=== PATIENT | male | born 1955 | race Caucasian/White ===

== ENCOUNTER 2018-05-04 08:39 | Outpatient (CLI) | payer OTHER | END 2018-05-04 08:40 | disposition home or self-care (01) | LOC: DTY/OP 08:39 | PROVIDERS: ATTEND Surgery | DX: E66.01 Morbid (severe) obesity due to excess calories (principal) | CPT/HCPCS: 97802 ==

== ENCOUNTER 2018-06-01 09:00 | Outpatient (CLI) | payer OTHER | END 2018-06-01 09:01 | disposition home or self-care (01) | LOC: DTY/OP 09:00 | PROVIDERS: ATTEND Surgery | DX: E66.01 Morbid (severe) obesity due to excess calories (principal) | CPT/HCPCS: 97802 ==

== ENCOUNTER 2018-07-01 08:41 | Outpatient (CLI) | payer OTHER | END 2018-07-01 08:42 | disposition home or self-care (01) | LOC: DTY/OP 08:41 | PROVIDERS: ATTEND Surgery | DX: E66.01 Morbid (severe) obesity due to excess calories (principal) | CPT/HCPCS: 97802 ==

== ENCOUNTER 2018-08-02 08:48 | Outpatient (CLI) | payer OTHER | END 2018-08-02 08:49 | disposition home or self-care (01) | LOC: DTY/OP 08:48 | PROVIDERS: ATTEND Surgery | DX: E66.01 Morbid (severe) obesity due to excess calories (principal) | CPT/HCPCS: 97802 ==

== ENCOUNTER 2018-08-10 06:24 | Outpatient (CLI) | payer OTHER ==
[2018-08-10 12:26] LABS: Mean Corpuscular HGB CONC 34.6 g/dL (32.0-36.0); Mean Corpuscular Hemoglobin 32.2 pg (27.0-31.0); Mean Corpuscular Volume 93.2 fL (78.0-98.0); Mean Platelet Volume 9.7 fL (7.4-10.4); Platelet Count 276 thou/uL (130-400); RBC Distribution Width 12.2 % (11.5-14.5); Red Blood Cell (RBC) Count 4.67 mill/uL (4.70-6.10); White Blood Cell (WBC) Count 6.7 thou/uL (4.8-10.8)
[2018-08-10 12:31] LABS: Bacteria/HPF None Seen HPF (None Seen); Hyaline Casts/LPF NONE SEEN LPF (0-3 Hyaline); RBC/HPF None Seen HPF (0-3); Squamous Epithelial 0-3 HPF (0-3); WBC/HPF None Seen HPF (0-3)
[2018-08-10 12:35] LABS: PTT 31.8 SEC (22.9-36.1); Prothrombin Time 13.7 SEC (12.0-14.7)
[2018-08-10 12:49] LABS: Anion Gap 12 mmol/L (10-20); BUN (Urea Nitrogen) 17 mg/dL (8.4-25.7); Calc. Creatinine Clearance 0 mL/min (70-130); Carbon Dioxide 26 mmol/L (23-31); Chloride 107 mmol/L (98-107); Estimated GFR-MDRD 88; Glucose 85 mg/dL (80-115); Potassium 3.5 mmol/L (3.5-5.1); Sodium 141 mmol/L (136-145)
== END 2018-08-10 06:25 | disposition home or self-care (01) ==
LOC: LABBT 06:24
PROVIDERS: ATTEND Urology
DX: Z01.812 Encounter for preprocedural laboratory examination (principal); N40.1 Benign prostatic hyperplasia with lower urinary tract symptoms; B37.42 Candidal balanitis
CPT/HCPCS: 80048; 81015; 85027; 85610; 85730; 87086; 93005; 93010

== ENCOUNTER 2018-08-19 07:06 | Observation (INO) | payer OTHER ==
[2018-08-10 11:50] VITALS: BMI 36.9
[2018-08-19] MEDS ORDERED: Levofloxacin 500 mg/D5W 100 ml Premix Bag ONE (08:15)
[2018-08-19] MEDS ORDERED: Fentanyl 100 MCG/2 ML VIAL ONE ×2 (09:31→12:38)
[2018-08-19] MEDS ORDERED: Bupivacaine 0.25% HCL 30 ML VIAL ONE (09:38)
[2018-08-19] MEDS ORDERED: Bacitracin Zinc Ointment 30 gm TUBE ONE (09:38)
[2018-08-19] MEDS ORDERED: Bupivacaine/Epinephrine 0.25% 30 ML VIAL ONE (09:38)
[2018-08-19] MEDS ORDERED: Lidocaine 1% PF 5 ML VIAL ONE (10:54)
[2018-08-19] MEDS ORDERED: Ondansetron PF 4 MG/2 ML Vial ONE (10:54)
[2018-08-19] MEDS ORDERED: PROPOFOL 200 MG/20 ML VIAL ONE (10:54)
[2018-08-19] MEDS ORDERED: B & O ONE (13:33)
[2018-08-19] MEDS ORDERED: Meperidine HCl/PF 25 MG/ML VIAL ONE (13:58)
[2018-08-19] MEDS ORDERED: Morphine 2 MG/ML SYRINGE SLOW IVP PRN (14:04)
[2018-08-19] MEDS ORDERED: Ondansetron PF 4 MG/2 ML Vial IVP PRN (14:04)
[2018-08-19] MEDS ORDERED: Hyoscyamine Sulfate SL 0.125 mg Tablet SL PRN (14:04)
[2018-08-19] MEDS ORDERED: Bisacodyl 10 MG SUPP PR PRN (14:04)
[2018-08-19] MEDS ORDERED: Mag-Al 1200 mg/1200 mg/30 ML UDCUP PO PRN (14:04)
[2018-08-19] MEDS ORDERED: HYDROcodone/Acetaminophen 5/325 mg Tablet PO PRN ×2 (14:04)
[2018-08-19] MEDS ORDERED: Oxybutynin 5 MG TAB PO PRN (14:04)
[2018-08-19] MEDS ORDERED: diphenhydrAMINE 25 MG CAP PO PRN (14:04)
[2018-08-19] MEDS ORDERED: hydrALAZINE 20 MG/ML VIAL SLOW IVP PRN (14:04)
[2018-08-19] MEDS: Acetaminophen 500 MG TAB PO PRN (19:12)
[2018-08-19] MEDS: Docusate 100 MG CAP PO SCH (20:21)
[2018-08-19] MEDS ORDERED: Pravastatin Sodium 20 MG TAB PO SCH (21:00)
[2018-08-19] MEDS ORDERED: Hydrochlorothiazide 25 MG TAB PO SCH (21:00)
[2018-08-19] MEDS ORDERED: Amlodipine 10 MG TAB PO SCH (21:00)
[2018-08-19] MEDS ORDERED: valACYclovir 500 MG TAB PO SCH (21:00)
--- NOTE | 2018-08-19 23:33 | OP ---
DATE OF PROCEDURE: 08/19/2018 SERVICE: Urology. PREOPERATIVE DIAGNOSES: Posthitis and benign prostatic hypertrophy with urinary obstruction. POSTOPERATIVE DIAGNOSES: Posthitis and benign prostatic hypertrophy with urinary obstruction. PROCEDURES PERFORMED: circumcision with transurethral vaporization of prostate. INDICATIONS FOR PROCEDURE: Mr. Mas is a 63-year-old white male, who presented to me with significant urinary complaints along with foreskin, which was chronically irritated and bothersome. We discussed options for treatments including circumcision, which he would like to proceed with. Additionally, we discussed UroLift versus prostate vaporization with risks and benefits and he elected to go with prostate vaporization. DESCRIPTION OF PROCEDURE: After identification of armband and verification of consent, the patient was brought back to the operating room, where he underwent general anesthesia with an LMA. He was left in the supine position and prepped and draped in usual sterile fashion. After appropriate time-out, a dorsal penile nerve block was performed with 0.25% Marcaine plain. An incision was made beyond the coronal sulcus of the glans down to Lyman's fascia. The foreskin was then reduced and a counter incision made overlying the first incision with a 15 blade. The intervening skin was then removed with a combination of Bovie electric R cautery and sharp dissection. Meticulous hemostasis was performed of the underside of intervening tissue and then the skin was reapproximated using a 4-0 chromic in an interrupted fashion. Some redundant skin on the ventral aspect of the penis was incised off and then the defect closed with a running 4-0 chromic. Dermabond was applied and once dry, a Telfa compression dressing applied. The patient was then transferred to the cystoscopy suite while still asleep and re-prepped and draped in the usual sterile fashion. A 26-Sinhala resectoscope sheath was then placed into the urethra with visual obturator into the bladder. The visual obturator was switched out for the bipolar button plasma vaporization electrode. Vaporization was started at the lateral lobes of the prostate and carried out toward the proximal aspect. Relaxing incisions were made at 5 and 7 o'clock, taking care to avoid the ureteral orifices, which were very close proximity to the bladder neck. All intervening tissue was vaporized until we were close to but not through the capsule. Upon completion, the prostate was wide open. Meticulous hemostasis was performed. The ureters were inspected at the end of the case and found to be in orthotopic location unharmed. The bladder was left partially filled and the resectoscope removed. A 24-Sinhala three- way Bonilla catheter was placed with ease into the bladder and CBI initiated. A new dressing was placed on the penis and the old one removed as it had become significantly wet during the procedure. A 16- A B and O suppository was placed in the patient's rectum and a StatLock affixed to secure the catheter. The patient was then taken out of lithotomy, awakened, taken to PACU for recovery in stable condition. COMPLICATIONS: None. ESTIMATED BLOOD LOSS: Minimal. RETAINED TUBES AND DRAINS: 22-Sinhala three-way Bonilla catheter on CBI. SPECIMENS: Foreskin. DISPOSITION: The patient will be kept in the hospital overnight for CBI. We will plan a voiding trial in the morning and discharge home. Job ID: [id number] MTDD
[2018-08-20 05:54] LABS: #Eosinphils 0.1 thou/uL (0.0-0.7); #Lymphocytes 2.2 thou/uL (1.20-3.40); #Monocytes 1.2 thou/uL (0.11-0.59); #Neutrophils 8.8 thou/uL (1.40-6.50); %Basophils 0.3 % (0.0-1.0); %Eosinophils 0.7 % (0.0-10.0); %Lymphocytes 17.7 % (21.0-51.0); %Monocytes 9.7 % (0.0-10.0); %Neutrophils 71.6 % (42.0-75.0); Hemoglobin 15.5 g/dL (14.0-18.0); Mean Corpuscular HGB CONC 35.6 g/dL (32.0-36.0); Mean Corpuscular Hemoglobin 33.1 pg (27.0-31.0); Mean Platelet Volume 8.8 fL (7.4-10.4); Platelet Count 242 thou/uL (130-400); RBC Distribution Width 12.2 % (11.5-14.5); Red Blood Cell (RBC) Count 4.68 mill/uL (4.70-6.10); White Blood Cell (WBC) Count 12.3 thou/uL (4.8-10.8)
[2018-08-20 06:22] LABS: Anion Gap 10 mmol/L (10-20); BUN (Urea Nitrogen) 12 mg/dL (8.4-25.7); Calc. Creatinine Clearance 138 mL/min (70-130); Calcium 9.4 mg/dL (7.8-10.44); Carbon Dioxide 28 mmol/L (23-31); Chloride 103 mmol/L (98-107); Estimated GFR-MDRD 83; Glucose 96 mg/dL (80-115); Sodium 138 mmol/L (136-145)
[2018-08-20] MEDS: Acetaminophen 500 MG TAB PO PRN ×2 (06:44→11:49)
[2018-08-20] MEDS: Docusate 100 MG CAP PO SCH (08:21)
[2018-08-20 15:43] VITALS: BP 142/67; TEMP 97.9
--- NOTE | 2018-08-21 10:37 | DIS ---
DATE OF ADMISSION: 08/19/2018 DATE OF DISCHARGE: 08/20/2018 (observation only). HISTORY: Mr. Mas is a 63-year-old gentleman who was admitted to the hospital on 08/19/2018 for surgical therapy for BPH and redundant foreskin. HOSPITAL COURSE: The patient underwent circumcision and button vaporization of the prostate on 08/19/[address] Patel. His postoperative course was uneventful. He was maintained on continuous bladder irrigation overnight, and it was discontinued on the morning of 08/20/2018. The urine remained clear off irrigation. The catheter was removed. The patient demonstrated the ability to void. He was discharged home. Discharge medications as per Dr. Patel. FOLLOWUP: The patient has followup appointment with Dr. Patel next week. Job ID: [id number]
== END 2018-08-20 15:20 | disposition home or self-care (01) ==
LOC: SDC 07:06 → SURG A 14:50
PROVIDERS: ADMIT Urology; ATTEND Urology
PROC: 0V508ZZ Destruction of Prostate, Via Natural or Artificial Opening Endoscopic (ICD-10-PCS; principal; 2018-08-20)
PROC: 0VTTXZZ Resection of Prepuce, External Approach (ICD-10-PCS; 2018-08-20)
DX: N40.1 Benign prostatic hyperplasia with lower urinary tract symptoms (principal); N13.8 Other obstructive and reflux uropathy; N47.1 Phimosis; B37.42 Candidal balanitis; I10 Essential (primary) hypertension; M19.90 Unspecified osteoarthritis, unspecified site; E78.5 Hyperlipidemia, unspecified; Z88.5 Allergy status to narcotic agent; Z79.899 Other long term (current) drug therapy
CPT/HCPCS: 36415; 80048; 85025; 88304; G0378; J1956; J2001; J2175; J2405; J2704; J3010; S0020

== ENCOUNTER 2018-09-26 08:13 | Outpatient (CLI) | payer OTHER ==
[2018-09-26 09:35] LABS: #Eosinphils 0.2 thou/uL (0.0-0.7); #Lymphocytes 1.9 thou/uL (1.20-3.40); #Monocytes 0.5 thou/uL (0.11-0.59); #Neutrophils 3.5 thou/uL (1.40-6.50); %Basophils 0.6 % (0.0-1.0); %Eosinophils 2.5 % (0.0-10.0); %Lymphocytes 30.8 % (21.0-51.0); %Monocytes 8.7 % (0.0-10.0); %Neutrophils 57.4 % (42.0-75.0); Hemoglobin 16.1 g/dL (14.0-18.0); Mean Corpuscular Hemoglobin 31.2 pg (27.0-31.0); Mean Corpuscular Volume 91.9 fL (78.0-98.0); Mean Platelet Volume 8.5 fL (7.4-10.4); Platelet Count 244 thou/uL (130-400); RBC Distribution Width 12.2 % (11.5-14.5); Red Blood Cell (RBC) Count 5.14 mill/uL (4.70-6.10); White Blood Cell (WBC) Count 6.2 thou/uL (4.8-10.8)
[2018-09-26 09:43] LABS: Hemoglobin A1c 5.4 % (4.0-6.0)
[2018-09-26 10:03] LABS: ALT (SGPT) 19 U/L (8-55); AST (SGOT) 14 U/L (5-34); Albumin 4.5 g/dL (3.4-4.8); Alkaline Phosphatase 69 U/L (40-150); Anion Gap 14 mmol/L (10-20); BUN (Urea Nitrogen) 16 mg/dL (8.4-25.7); Bilirubin, Direct 0.2 mg/dL (0.1-0.3); Bilirubin, Total 0.4 mg/dL (0.2-1.2); Calc. Creatinine Clearance 0 mL/min (70-130); Calcium 9.5 mg/dL (7.8-10.44); Carbon Dioxide 25 mmol/L (23-31); Chloride 104 mmol/L (98-107); Estimated GFR-MDRD 85; Globulin 2.8 g/dL (2.4-3.5); Glucose 94 mg/dL (80-115); Potassium 3.9 mmol/L (3.5-5.1); Protein, Total 7.3 g/dL (5.8-8.1); Sodium 139 mmol/L (136-145)
--- NOTE | 2018-09-26 10:42 | RAD ---
PA AND LATERAL CHEST: Date: 09/26/18 HISTORY: Preop. FINDINGS: Heart size and mediastinum within normal limits. Lungs are clear of infiltrates. No significant bony findings. IMPRESSION: No active intrathoracic disease. POS: TPC
== END 2018-09-26 08:14 | disposition home or self-care (01) ==
LOC: LABBT 08:13
PROVIDERS: ATTEND Surgery
DX: Z01.818 Encounter for other preprocedural examination (principal); E66.01 Morbid (severe) obesity due to excess calories
CPT/HCPCS: 71046; 80053; 80076; 83036; 85025

== ENCOUNTER 2018-09-26 08:30 | Inpatient (IN) | payer OTHER ==
[2018-10-04] MEDS ORDERED: Heparin 5,000 UNITS/ML VIAL ONE (08:26)
[2018-10-04] MEDS ORDERED: Scopolamine 1.5 mg/72 hour Patch ONE (09:37)
[2018-10-04] MEDS ORDERED: Bupivacaine/Epinephrine 0.25% 30 ML VIAL ONE (11:19)
[2018-10-04] MEDS ORDERED: Fentanyl 250 MCG/5 ML VIAL ONE (11:21)
[2018-10-04] MEDS ORDERED: Ondansetron HCl/PF 4 MG/2 ML Vial IVP PRN (13:00)
[2018-10-04] MEDS ORDERED: Promethazine HCl 25 MG/ML VIAL ONE (13:00)
[2018-10-04] MEDS ORDERED: Fentanyl 100 MCG/2 ML VIAL ONE ×3 (13:00→13:36)
[2018-10-04] MEDS ORDERED: Promethazine HCl 25 MG/ML VIAL SLOW IVP PRN (13:00)
[2018-10-04] MEDS ORDERED: Promethazine HCl 25 MG/ML VIAL IM PRN ×3 (13:00→13:14)
[2018-10-04] MEDS ORDERED: diphenhydrAMINE 50 MG/ML VIAL IVP PRN ×2 (13:12→13:14)
[2018-10-04] MEDS ORDERED: hydrALAZINE 20 MG/ML VIAL SLOW IVP PRN (13:12)
[2018-10-04] MEDS ORDERED: Dextrose 50% Abboject 50 ML SYRINGE SLOW IVP PRN (13:12)
[2018-10-04] MEDS ORDERED: Hydrocodone-Acetamin 15 ML UDCUP PO PRN (13:12)
[2018-10-04] MEDS ORDERED: Ondansetron PF 4 MG/2 ML Vial IVP PRN ×2 (13:12→13:14)
[2018-10-04] MEDS ORDERED: Dextrose 5% in Water 1,000 ML IV PRN (13:12)
[2018-10-04] MEDS ORDERED: Zolpidem Tartrate 5 MG TAB PO PRN (13:14)
[2018-10-04] MEDS ORDERED: fentaNYL Citrate/PF 2,000 MCG in Sodium Chloride 0.9% 60 ML IV PRN (13:14)
[2018-10-04] MEDS ORDERED: diphenhydrAMINE 25 MG CAP PO PRN (13:14)
[2018-10-04] MEDS ORDERED: diphenhydrAMINE 50 MG/ML VIAL IM PRN (13:14)
[2018-10-04] MEDS ORDERED: Naloxone HCl 0.4 mg/ml Vial IV PRN (13:14)
[2018-10-04] MEDS ORDERED: Communication Order-Pharmacy FS SCH (13:15)
[2018-10-04] MEDS ORDERED: Ondansetron PF 4 MG/2 ML Vial ONE (15:10)
[2018-10-04] MEDS ORDERED: Rocuronium Bromide 10 MG/ML (10ML VIAL) ONE (15:10)
[2018-10-04] MEDS ORDERED: PROPOFOL 200 MG/20 ML VIAL ONE (15:10)
[2018-10-04] MEDS ORDERED: Dexamethasone 20 MG/5 ML VIAL ONE (15:10)
[2018-10-04] MEDS ORDERED: Glycopyrrolate 0.2 MG/ML 5 ML SYRINGE ONE (15:10)
[2018-10-04] MEDS ORDERED: Lidocaine 1% PF 5 ML VIAL ONE (15:10)
[2018-10-04 16:03] VITALS: BMI 36.5
[2018-10-04] MEDS: Acetaminophen 1,000 MG in Premix Bag 1 BAG IVPB SCH ×2 (16:08→20:28)
[2018-10-04] MEDS: D5 1/2 NS w/20 mEq KCL 1,000 ML IV SCH ×2 (16:09→20:34)
--- NOTE | 2018-10-04 19:14 | OP ---
DATE OF PROCEDURE: 10/04/2018 PREOPERATIVE DIAGNOSES: 1. Morbid obesity with a body mass index of 35. 2. Hypertension. 3. Hyperlipidemia. POSTOPERATIVE DIAGNOSES: 1. Morbid obesity with a body mass index of 35. 2. Hypertension. 3. Hyperlipidemia. PROCEDURE PERFORMED: Laparoscopic sleeve gastrectomy with [place] staple line reinforcements and 38-Amharic bougie. ANESTHESIA: General. ESTIMATED BLOOD LOSS: 50 mL. COMPLICATIONS: None. SPECIMEN: Stomach. FINDINGS: Normal postoperative EGD. DESCRIPTION OF PROCEDURE: The patient was taken to the operating room and laid supine on the operating room table. After general anesthetic was obtained, the arms and legs were double strapped to bariatric table. The OG tube was used to decompress the stomach. The abdomen was prepped and draped in a sterile fashion. Left subcostal 5 mm Optiview trocar was placed in usual fashion and high-flow pneumoperitoneum was obtained. Left and right abdominal 12 mm ports as well as right subcostal 5 mm port were placed under direct visualization. The patient was placed in reverse Trendelenburg position. A 5 mm incision was made at the xiphoid and Juan Antonio was used to raise the liver off the GE junction. Short gastrics were taken down from mid body of stomach to left tony of diaphragm. The angle of His, fundus of the stomach, and posterior fundus were all completely dissected and freed of its attachments. Short gastrics were taken down to a distance of 6 cm proximal to the pylorus. OG tube was removed and then 38 bougie was brought in and its tip left in the antrum of the stomach. Multiple loads of the [place] stapling device with [place] staple line reinforcements used to perform the sleeve. The first was fired up at a distance of 6 cm proximal to the pylorus, angled up towards the incisura. Care was taken to avoid being too close to incisura. Multiple loads then fired up along the bougie. Stomach was completely transected at the angle of His. The stomach was removed from the left abdominal incision. This fascial defect was closed using GraNee needle and 0 Vicryl tie. The bougie was removed and the EGD scope was passed into esophagus, stomach to the level of duodenum. There was no obstruction. There was no stricture at the incisura. The stomach was decompressed and the EGD scope was removed. Juan Antonio retractors were removed under direct visualization without bleeding. All ports were removed under camera visualization. Pneumoperitoneum was let down. Vicryl was used to close the fascial defect from the left abdominal incisions. All incisions were irrigated and closed using 4-0 Monocryl and Dermabond. The patient was sent to Recovery in stable condition. All instrument counts, needle counts, and lap counts were correct. Job ID: [id number]
[2018-10-04] MEDS ORDERED: Enoxaparin Sodium 40 MG/0.4 ML SYRINGE SC SCH (21:00)
[2018-10-04] MEDS ORDERED: Amlodipine 10 MG TAB PO SCH (21:00)
[2018-10-05] MEDS: Acetaminophen 1,000 MG in Premix Bag 1 BAG IVPB SCH (01:32)
[2018-10-05] MEDS: D5 1/2 NS w/20 mEq KCL 1,000 ML IV SCH (04:31)
[2018-10-05 05:58] LABS: #Lymphocytes 1.1 thou/uL (1.20-3.40); #Monocytes 0.9 thou/uL (0.11-0.59); #Neutrophils 11.2 thou/uL (1.40-6.50); %Eosinophils 0.1 % (0.0-10.0); %Lymphocytes 8.6 % (21.0-51.0); %Monocytes 6.6 % (0.0-10.0); %Neutrophils 84.7 % (42.0-75.0); Hemoglobin 15.9 g/dL (14.0-18.0); Mean Corpuscular HGB CONC 33.2 g/dL (32.0-36.0); Mean Corpuscular Hemoglobin 30.7 pg (27.0-31.0); Mean Corpuscular Volume 92.6 fL (78.0-98.0); Platelet Count 306 thou/uL (130-400); RBC Distribution Width 12.3 % (11.5-14.5); Red Blood Cell (RBC) Count 5.18 mill/uL (4.70-6.10); White Blood Cell (WBC) Count 13.3 thou/uL (4.8-10.8)
[2018-10-05 06:19] LABS: Anion Gap 11 mmol/L (10-20); BUN (Urea Nitrogen) 14 mg/dL (8.4-25.7); Calc. Creatinine Clearance 135 mL/min (70-130); Calcium 9.8 mg/dL (7.8-10.44); Carbon Dioxide 26 mmol/L (23-31); Chloride 104 mmol/L (98-107); Estimated GFR-MDRD 82; Glucose 138 mg/dL (80-115); Potassium 4.4 mmol/L (3.5-5.1); Sodium 137 mmol/L (136-145)
--- NOTE | 2018-10-05 07:51 | PDOC.GSPN ---
Surgery Progress Note: Subj - Subjective Narrative: Reports mild but appropriate abdominal pain. He is able to tolerate liquids with mild nausea that has been well controlled with the scopolamine patch. Surgery Progress Note: Obj - Vital signs Vital signs: Vital Signs - Most Recent Temp Pulse Resp BP Pulse Ox 97.7 F 76 16 159/85 H 100 10/05/18 04:00 10/05/18 04:00 10/05/18 04:00 10/05/18 04:00 10/05/18 04:00 - Physical Exam General: other (Mild distress) Cardiovascular: regular rate and rhythm, no murmur Respiratory: clear to auscultation, normal expansion, normal respiratory effort Abdomen: soft, positive bowel sounds, appropriately tender Psychiatric: memory intact, oriented to time, oriented to person, oriented to place, speech is normal Wound: healing well Surgery Progress Note: Results - Labs Result Diagrams: 10/05/18 05:33 10/05/18 05:33 Lab results: Laboratory Results - last 24 hr 10/05/18 10/05/18 05:33 05:33 WBC 13.3 H RBC 5.18 Hgb 15.9 Hct 47.9 MCV 92.6 MCH 30.7 MCHC 33.2 RDW 12.3 Plt Count 306 MPV 8.0 Neutrophils % 84.7 H Lymphocytes % 8.6 L Monocytes % 6.6 Eosinophils % 0.1 Basophils % 0.0 Neutrophils # 11.2 H Lymphocytes # 1.1 L Monocytes # 0.9 H Eosinophils # 0.0 Basophils # 0.0 Sodium 137 Potassium 4.4 Chloride 104 Carbon Dioxide 26 Anion Gap 11 BUN 14 Creatinine 0.93 Estimated GFR (MDRD) 82 Glucose 138 H Calcium 9.8 Surgery Progress Note: A/P - Plan Plan: Pt. is post gastric sleeve surgery. Continue scopolamine patch to manage nausea. Discharge to home
[2018-10-05] MEDS ORDERED: Pantoprazole 40 MG VIAL IVP SCH (09:00)
[2018-10-05 09:11] VITALS: BP 154/88; TEMP 98.1
--- NOTE | 2018-10-05 11:47 | DIS ---
DATE OF ADMISSION: 10/04/2018 DATE OF DISCHARGE: 10/05/2018 ADMIT DIAGNOSIS: Morbid obesity. DISCHARGE DIAGNOSIS: Morbid obesity. PROCEDURE PERFORMED: Laparoscopic sleeve by Dr. Bill without complication. CONDITION ON DISCHARGE: Improved. STAFF: Fidel Bill MD HOSPITAL COURSE: On postop day 1, the patient is doing well. He is tolerating the clear liquid diet. He is ambulatory and his pain is controlled. His vital signs are stable. He is being discharged home. Prescriptions for Lortab elixir and Zofran were sent over to his pharmacy, [facility]. He will follow up with me in 2 weeks. Job ID: [id number]
== END 2018-10-05 11:55 | disposition home or self-care (01) | DRG 621 ==
LOC: SURG B 10-04 08:13
PROVIDERS: ADMIT Surgery; ATTEND Surgery
PROC: 0DB64Z3 Excision of Stomach, Percutaneous Endoscopic Approach, Vertical (ICD-10-PCS; principal; 2018-10-04)
DX: E66.01 Morbid (severe) obesity due to excess calories (principal); I10 Essential (primary) hypertension; E78.5 Hyperlipidemia, unspecified; Z68.36 Body mass index [BMI] 36.0-36.9, adult; Z88.8 Allergy status to other drugs, medicaments and biological substances
CPT/HCPCS: 36415; 80048; 85025; 88307; 88312; 94760; J0131; J0690; J1100; J1644; J1650; J2001; J2405; J2550; J2704; J3010; J3490